=== PATIENT | male | born 1960 | race Caucasian/White ===

== ENCOUNTER → 2016-12-19 | Outpatient (CLI) | payer BC ==
--- NOTE | 2016-12-19 09:19 | CT ---
EXAMINATION TYPE: CT chest wo con DATE OF EXAM: 12/19/2016 7:50 AM COMPARISON: CT chest March 16, 2016. Older CT August 09, 2015. HISTORY: Prior abnormal CT. Known fibrosis. CT DLP: 770 mGycm. Automated Exposure Control for Dose Reduction was Utilized. TECHNIQUE: CT scan of the thorax is performed without IV contrast. FINDINGS: LUNGS: There is subpleural fibrosis and reticulation seen bilaterally and diffusely involving upper a nd lower lungs. Some honeycombing along the periphery is present. Overall I see no significant progre ssion from August 2015 exam. No suspicious groundglass opacity or consolidation is seen to suggest acute process. No pleural effusion or pneumothorax is noted bilaterally. No concerning parenchymal no dule or mass is identified. No significant bronchiectasis is present. MEDIASTINUM: Lack of IV contrast is noted to limit evaluation for mediastinal and especially hilar ad enopathy. There are no definitive greater than 1 cm hilar or mediastinal lymph nodes. No cardiomega ly or pericardial effusion is seen. Main pulmonary artery appears prominent at 3.7 cm on axial image 18 but stable from prior. Adjacent ascending aorta measures 3.[address] finding is consist ent with underlying pulmonary artery hypertension. OTHER: Liver is diffusely low dense consistent with fatty infiltration. Mild to moderate multilevel a nterior and lateral spurring is present. There is vacuum disc phenomenon in the lower thoracic levels noted. IMPRESSION: Bilateral interstitial fibrosis redemonstrated involving upper and lower lungs raises con cern for IPF. No significant progression from August 2015. No acute pulmonary process identified.
== END | disposition home or self-care (01) ==
LOC: RADCTMAIN 07:34
PROVIDERS: ATTEND Thoracic Surgery (Cardiothoracic Vascular Surgery)
DX: J84.10 Pulmonary fibrosis, unspecified (principal)
CPT/HCPCS: 71250

== ENCOUNTER → 2017-12-16 | Outpatient (CLI) | payer BC ==
--- NOTE | 2017-12-16 11:07 | CT ---
EXAMINATION TYPE: CT chest wo con DATE OF EXAM: 12/16/2017 COMPARISON: Prior CT chest 12/19/2016 HISTORY: Interstitial pulmonary disease CT DLP: 684.6 mGycm. Automated Exposure Control for Dose Reduction was Utilized. TECHNIQUE: CT scan of the thorax is performed without IV contrast. FINDINGS: Lack of contrast could compromise sensitivity. The pulmonary artery is dilated similar to prior exam. LUNGS: The lungs are similar in appearance, thickening of interlobular septa again noted bilaterally, some minimal honeycombing suspected at the lung bases, thickened septal lines are present, there is no concerning parenchymal mass or nodule identified. Findings are largely peripheral, subpleural and bilateral. Distribution is somewhat patchy, some areas of groundglass opacity also present. There is no pleural effusion or pneumothorax seen. The tracheobronchial tree is patent. MEDIASTINUM: Lack of IV contrast is noted to limit evaluation for mediastinal and especially hilar ad enopathy. Retrocaval pretracheal lymph node shows a short axis measurement of 12 to 13 mm similar to prior exam. OTHER: No additional significant interval change is seen. IMPRESSION: Findings compatible with idiopathic pulmonary fibrosis, similar to prior exam. Correlate for pulmonary artery hypertension.
== END | disposition home or self-care (01) ==
LOC: RADCTMAIN 08:15
PROVIDERS: ATTEND Thoracic Surgery (Cardiothoracic Vascular Surgery)
DX: J84.9 Interstitial pulmonary disease, unspecified (principal)
CPT/HCPCS: 71250

== ENCOUNTER → 2018-09-12 | Outpatient (CLI) | payer BC ==
[2018-09-12 18:44] LABS: Rheumatoid Factor 8 IU/mL (0-15)
[2018-09-12 18:57] LABS: Anti-DNA, DS unit <1.0 IU/mL; DNA Double-Stranded NEGATIVE (NEGATIVE); RNP <0.2 AI
[2018-09-12 19:12] LABS: Dermato. farinae IgE 0.55 kU/L
[2018-09-12 19:13] LABS: Cat Epith & Dander IgE <0.10 kU/L; Cockroach IgE 1.42 kU/L; Dog Dander IgE <0.10 kU/L
[2018-09-12 19:14] LABS: Alternaria alternata IgE <0.10 kU/L; Maple (Box Elder) IgE <0.10 kU/L
[2018-09-12 19:16] LABS: Birch IgE <0.10 kU/L; Elm IgE <0.10 kU/L; Oak IgE <0.10 kU/L
[2018-09-12 19:17] LABS: Ragweed,Common IgE <0.10 kU/L; Red Top (Bentgrass) IgE <0.10 kU/L
== END | disposition home or self-care (01) ==
LOC: LABWHC1 13:30
PROVIDERS: ATTEND Internal Medicine Critical Care Medicine
DX: J84.9 Interstitial pulmonary disease, unspecified (principal)
CPT/HCPCS: 36415; 82785; 86003; 86038; 86225; 86235; 86431

== ENCOUNTER → 2019-10-09 | Outpatient (CLI) | payer BC ==
--- NOTE | 2019-10-09 10:12 | FL ---
EXAMINATION TYPE: FL barium swallow DATE OF EXAM: 10/09/2019 CLINICAL HISTORY: Gastroesophageal reflux and prior ventral hernia repair TECHNIQUE: A double contrast esophagram is performed utilizing air and barium. A total of 1 minute and 21 seconds of fluoroscopic time was utilized during procedure. 51 fluoroscopic images were saved during the examination. COMPARISON: None FINDINGS: The esophagus shows abnormal motility with tertiary contractions sporadically throughout th e exam. There is normal emptying into the stomach. No evidence of hiatal hernia or stricture noted. The esophageal lining demonstrates horizontally oriented linear lucencies and peripheral irregularity . Mild degree gastroesophageal reflux was seen during real time performance of this study. Severe int raesophageal reflux was seen during the examination that may be on the basis of decreased propulsion/ presbyesophagus. IMPRESSION: 1. Abnormal esophageal mucosal lining. Findings can be seen in chronic esophagitis however given that mucosal irregularity endoscopy is recommended for further evaluation. 2. Mild degree gastroesophageal reflux and severe intraesophageal reflux, that may be on the basis of decreased propulsion and presbyesophagus.
== END | disposition home or self-care (01) ==
LOC: RADUSWWP 08:54
PROVIDERS: ATTEND Family Medicine
DX: K21.9 Gastro-esophageal reflux disease without esophagitis (principal); K20.9 Esophagitis, unspecified; K22.8 Other specified diseases of esophagus
CPT/HCPCS: 74220

== ENCOUNTER 2019-10-22 09:01 | Day surgery (SDC) | payer BC ==
[2019-10-20 11:18] VITALS: BMI 31.4
[~2019-10-22 09:01] MED LIST: LACTATED RINGERS 1,000 ML IV SCH; LIDOCAINE 1% 20 ML VIAL (10MG/ML) FOR IV START INTRADERMA PRN; MIDAZOLAM 2 MG/2 ML VIAL IV PRN
[2019-10-22 09:45] VITALS: RESP 16; TEMP 98.6
[2019-10-22] MEDS ORDERED: fentaNYL (PF) 50 MCG/ML 2 ML AMP ONE (10:09)
[2019-10-22] MEDS ORDERED: PROPOFOL 10 MG/ML 20 ML VIAL IV ONE (10:09)
[2019-10-22] MEDS ORDERED: LIDOCAINE 1% INJ 10MG/ML (20 ML MDV) ONE (10:09)
[2019-10-22] MEDS ORDERED: MIDAZOLAM 2 MG/2 ML VIAL ONE (10:09)
[2019-10-22 10:20] LABS: Albumin 4.8 g/dL (3.5-5.0); Bilirubin, Delta 0.4 mg/dL (0.0-0.2); Bilirubin,Unconjugated 0.6 mg/dL (0.0-1.1); Total Protein 8.3 g/dL (6.3-8.2)
--- NOTE | 2019-10-22 10:34 | P.PCN ---
Date of Procedure: 10/22/19 Description of Procedure: BRIEF HISTORY: Patient is a pleasant 59-year-old male who presents for outpatient esophagogastroduodenoscopy for evaluation of wall thickening of the esophagus seen on imaging and GERD. Patient reports a history of GERD controlled with omeprazole daily. However, he states that after starting his new medication for pulmonary fibrosis reflux has worsened. He reports that this is a known side effect of the medication. Omeprazole was increased to twice daily and he reports his symptoms are now improved. PROCEDURE PERFORMED: Esophagogastroduodenoscopy with biopsy. PREOPERATIVE DIAGNOSIS: GERD, wall thickening of the esophagus, abnormal imaging esophagus. ESTIMATED BLOOD LOSS: Minimal. IV sedation per anesthesia. PROCEDURE: After informed consent was obtained, the patient was brought into the endoscopy unit. IV sedation was administered by Anesthesia under continuous monitoring. Initially the Olympus GIF-190 video endoscope was inserted into the mouth. Esophagus intubated without any difficulty. It was gradually advanced into the stomach and duodenum and carefully examined. The bulb and the second part of the duodenum appeared normal, with biopsies taken to rule out celiac sprue. The scope at this time was withdrawn to the stomach, adequately insufflated with air, and upon careful examination, mucosa of the antrum, body, cardia and the fundus appeared normal, except for some mild punctate erythema in the antrum and body of the stomach suggestive of mild gastritis with biopsies taken. The scope was then withdrawn into the esophagus. The GE junction was located at 38 cm from the incisors with biopsies of the GE junction taken. The esophagus appeared normal, with biopsies of the midesophagus taken in the setting of abnormal imaging of the esophagus. There were no erosions or ulcerations seen and the patient tolerated the procedure well. IMPRESSION: 1. Gastritis antrum and body, biopsied. 2. Biopsies of the duodenum, GE junction and mid esophagus. RECOMMENDATIONS: The findings of this examination were discussed with the patient and his . Okay to resume diet. Okay to resume medications. Await pathology from biopsies. Continue omeprazole twice daily.
[2019-10-22 10:50] VITALS: BP 107/72; PULSE 69
== END 2019-10-22 11:12 | disposition home or self-care (01) ==
LOC: ORWHC2ENDO 09:01
PROVIDERS: ATTEND Internal Medicine
DX: K21.0 Gastro-esophageal reflux disease with esophagitis (principal); K29.50 Unspecified chronic gastritis without bleeding; J84.10 Pulmonary fibrosis, unspecified; I10 Essential (primary) hypertension; E78.5 Hyperlipidemia, unspecified; Z87.891 Personal history of nicotine dependence; Z79.899 Other long term (current) drug therapy; Z79.51 Long term (current) use of inhaled steroids; Z79.82 Long term (current) use of aspirin; Z98.890 Other specified postprocedural states; Z76.82 Awaiting organ transplant status
CPT/HCPCS: 88305; 80076; 43239; J2250; J2001; J3010; J2704

== ENCOUNTER → 2020-02-10 | Outpatient (CLI) | payer BC ==
[2020-02-10 17:24] LABS: Albumin 4.4 g/dL (3.80-4.90); Albumin/Globulin Ratio 1.83 (1.60-3.17); Bilirubin, Conjugated 0.2 mg/dL (0.20-0.40); Bilirubin,Unconjugated 0.4 mg/dL; Globulin 2.4 g/dL (1.6-3.3); Total Bilirubin 0.6 mg/dL (0.2-1.2); Total Protein 6.8 g/dL (6.2-8.2)
== END | disposition home or self-care (01) ==
LOC: LABWHC1 08:48
PROVIDERS: ATTEND Internal Medicine
DX: J84.9 Interstitial pulmonary disease, unspecified (principal); J84.112 Idiopathic pulmonary fibrosis
CPT/HCPCS: 36415; 80076

== ENCOUNTER → 2020-03-10 | Outpatient (CLI) | payer BC | END | disposition home or self-care (01) | LOC: LABWHC1 08:14 | PROVIDERS: ATTEND Internal Medicine | DX: J84.112 Idiopathic pulmonary fibrosis (principal) ==

== ENCOUNTER → 2020-05-20 | Outpatient (CLI) | payer BC ==
[2020-05-20 08:33] LABS: HGB 14.6 gm/dL (13.0-17.5); MCH 30.3 pg (25.0-35.0); MCHC 32.6 g/dL (31.0-37.0); Mean Platelet Volume 7.4; Platelet Count 236 k/uL (150-450); RBC 4.84 m/uL (4.30-5.90); RDW 13.4 % (11.5-15.5); WBC 6.8 k/uL (3.8-10.6)
[2020-05-20 08:37] LABS: Prothrombin Time 10.6 sec (9.0-12.0)
[2020-05-20 08:44] LABS: African American GFR (CKD) >90 (>60 ml/min/1.73 sqM); Anion Gap 9 mmol/L; Blood Urea Nitrogen 20 mg/dL (9-20); Calcium 9.6 mg/dL (8.4-10.2); Carbon Dioxide 27 mmol/L (22-30); Chloride 105 mmol/L (98-107); Glucose 91 mg/dL (74-99); Non-African American GFR(CKD) 80 (>60 ml/min/1.73 sqM); Potassium 4.4 mmol/L (3.5-5.1); Sodium 141 mmol/L (137-145)
== END | disposition home or self-care (01) ==
LOC: LABWHC1 07:56
PROVIDERS: ATTEND Internal Medicine
DX: Z01.818 Encounter for other preprocedural examination (principal); I25.10 Atherosclerotic heart disease of native coronary artery without angina pectoris
CPT/HCPCS: 36415; 80048; 85027; 85610

== ENCOUNTER 2020-06-10 09:02 | Day surgery (SDC) | payer BC ==
[2020-06-08 11:39] VITALS: BMI 29.1
[~2020-06-10 09:02] MED LIST changes: +LIDOCAINE 1% (10MG/ML) FOR IV START INTRADERMA PRN; -LIDOCAINE 1% 20 ML VIAL (10MG/ML) FOR IV START INTRADERMA PRN; -MIDAZOLAM 2 MG/2 ML VIAL IV PRN
[2020-06-10 09:48] VITALS: TEMP 97
[2020-06-10] MEDS ORDERED: PROPOFOL 10 MG/ML 20 ML VIAL IV ONE (10:33)
--- NOTE | 2020-06-10 10:53 | P.PCN ---
Date of Procedure: 06/10/20 Procedure(s) Performed: BRIEF HISTORY: Patient is a 59-year-old pleasant white male scheduled for an elective colonoscopy as a part of screening for colorectal neoplasia PROCEDURE PERFORMED: Colonoscopy. PREOPERATIVE DIAGNOSIS: Screening for colon cancer. IV sedation per Anesthesia. PROCEDURE: After informed consent was obtained, the patient, was brought into the endoscopy unit. IV sedation was administered by Anesthesia under continuous monitoring. Digital rectal examination was normal. Initially the Olympus CF-160 flexible video colonoscope was then inserted in the rectum, gradually advanced into the cecum without any difficulty. Careful examination was performed as the scope was gradually being withdrawn. Ileocecal valve and the appendiceal orifice were visualized and appeared normal. Prep was fair.. Mucosa of the cecum, ascending colon, transverse colon, descending colon, sigmoid colon, and rectum appeared normal. Retroflexion was performed in the rectum and no lesions were seen. The patient tolerated the procedure well. IMPRESSION: Normal-appearing colon from rectum to cecum with no evidence of colorectal neoplasia . RECOMMENDATIONS: Findings of this examination were discussed with the patient as well as his family. he was advised to have a repeat screening colonoscopy in 10 years.
[2020-06-10 11:09] VITALS: PULSE 80; RESP 18
[2020-06-10 11:13] VITALS: BP 115/69
== END 2020-06-10 11:40 | disposition home or self-care (01) ==
LOC: ORWHC2ENDO 09:02
PROVIDERS: ATTEND Internal Medicine Gastroenterology
DX: Z12.11 Encounter for screening for malignant neoplasm of colon (principal); J84.112 Idiopathic pulmonary fibrosis; K21.9 Gastro-esophageal reflux disease without esophagitis; Z79.899 Other long term (current) drug therapy; Z98.890 Other specified postprocedural states; Z79.51 Long term (current) use of inhaled steroids; Z87.19 Personal history of other diseases of the digestive system
CPT/HCPCS: G0121; J2704; 45378

== ENCOUNTER 2020-08-29 12:24 | Inpatient (IN) | payer BC ==
--- NOTE | 2020-08-29 13:51 | ED ---
General Adult HPI - General Chief complaint: Recheck/Abnormal Lab/Rx Stated complaint: abn labs Time Seen by Provider: 08/29/20 13:39 Source: patient Mode of arrival: ambulatory Limitations: no limitations - History of Present Illness Initial comments: Dictation was produced using bCODE dictation software. please excuse any grammatical, word or spelling errors. This patient was cared for during a federal and state declared state of emergency secondary to Covid 19 Chief Complaint: 60-year-old male with abnormal outpatient lab History of Present Illness: Is a 60-year-old male he is 2 weeks postop from bilateral lung transplant performed at [facility]. Patient states he had the procedure done 2 weeks ago. Patient has history of idiopathic pulmonary fibrosis. Patient states that his postoperative course was benign. He has been at home recovering. He has home health care nurse that checks on him regularly. He had some labs drawn on potassium of 6.2. Patient states he's been recovering well. He does have some mild pain in his chest and back from the surgery. Otherwise she feels well. Denies any paresthesias or weakness. The ROS documented in this emergency department record has been reviewed and co nfirmed by me. Those systems with pertinent positive or negative responses have been documented in the HPI. All other systems are other negative and/or noncontributory. PHYSICAL EXAM: General Impression: Alert and oriented x3, not in acute distress HEENT: Normocephalic atraumatic, extra-ocular movements intact, pupils equal and reactive to light bilaterally, mucous membranes moist. Cardiovascular: Heart regular rate and rhythm Chest: Able to complete full sentences, no retractions, no tachypnea, surgical sites clean dry and intact Abdomen: abdomen soft, non-tender, non-distended, no organomegaly Musculoskeletal: Pulses present and equal in all extremities, no peripheral edema Motor: no focal deficits noted Neurological: CN II-XII grossly intact, no focal motor or sensory deficits noted Skin: Intact with no visualized rashes Psych: Normal affect and mood ED course: 60-year-old male presents with potassium of 6.2 drawn on blood tests from earlier today. He is 2 weeks postop from bilateral lung transplant. Vital signs upon arrival are within acceptable limits. Patient is well-appearing at bedside. EKG does not show any changes to suggest hyperkalemia. EKG interpretation: Ventricular rate 89, normal sinus rhythm,. Interval 160, QRS 92, QTC 425. No ID prolongation, no QTC prolongation, no ST or T-wave changes noted. Overall, this EKG is unremarkable Repeat labs were obtained. Hemoglobin 10.0. This is probably cyst baseline from surgery. Sodium is 129. Patient given intravenous fluids. Discussed him 6.6 which is consistent with that of a potassium from earlier. He is touch of acute kidney. Creatinine of 2.07. Urinalysis unremarkable. Discussed patient case with Dr. 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 He is agreeable with patient being admitted to our hospital for potassium control. Case is discussed with Dr. Guaman who requested nephrology consultation. Patient given hyperkalemia cocktail. - Related Data Home Medications Medication Instructions Recorded Confirmed Ascorbic Acid [Vitamin C 250 mg 500 mg PO DAILY 10/20/19 06/10/20 Tablet Chew] Aspirin 81 mg PO DAILY 10/20/19 06/10/20 Atorvastatin [Lipitor] 20 mg PO HS 10/20/19 06/10/20 Cholecalciferol [Vitamin D3] 400 unit PO DAILY 10/20/19 06/10/20 Cyanocobalamin (Vitamin B-12) 2,000 mcg PO DAILY 10/20/19 06/10/20 [Vitamin B-12] Fish Oil/Dha/Epa [Fish Oil 1,200 1 each PO DAILY 10/20/19 06/10/20 mg Fish Oil] Fluticasone/Umeclidin/Vilanter 1 inhalation INHALATION QAM 10/20/19 06/10/20 [Trelegy Ellipta 100-62.5-25] Gabapentin [Neurontin] 600 mg PO HS 10/20/19 06/10/20 Losartan Potassium [Cozaar] 100 mg PO HS 10/20/19 06/10/20 Magnesium 500 mg PO DAILY 10/20/19 06/10/20 Multivit-Min/FA/Lycopen/Lutein 1 each PO DAILY 10/20/19 06/10/20 [Centrum Silver Men Tablet] Omeprazole 20 mg PO BID 10/20/19 06/10/20 Pirfenidone [Esbriet] 801 mg PO 0730,1400,2000 10/20/19 06/10/20 Allergies Allergy/AdvReac Type Severity Reaction Status Date / Time No Known Allergies Allergy Verified 08/29/20 12:56 Review of Systems ROS Statement: Those systems with pertinent positive or pertinent negative responses have been documented in the HPI. ROS Other: All systems not noted in ROS Statement are negative. Past Medical History Past Medical History: GERD/Reflux, Hyperlipidemia, Hypertension Additional Past Medical History / Comment(s): pt states "severe reflux and possible ulcerations shown on recent barium swallow",pulmonary fibrosis-possible transplant canidate-following with Dr at [facility]-uses O2 at 2L NC at hs and prn.Hx of jaw locking open on rt side spontaneously with need for anesthesia to close mult times. History of Any Multi-Drug Resistant Organisms: None Reported Past Surgical History: Hernia Repair, Orthopedic Surgery Additional Past Surgical History / Comment(s): lazy eye surgery,arthroscopy to knee,umbilical hernia repair w/ mesh, tamara lung transplant Past Anesthesia/Blood Transfusion Reactions: No Reported Reaction Past Psychological History: No Psychological Hx Reported Smoking Status: Former smoker Past Alcohol Use History: None Reported Past Drug Use History: None Reported - Past Family History Mother Family Medical History: No Reported History General Exam Limitations: no limitations Course Vital Signs 08/29/20 12:56 Temperature 98.4 F Pulse Rate 98 Respiratory 18 Rate Blood Pressure 149/94 O2 Sat by Pulse 98 Oximetry Medical Decision Making - Lab Data Result diagrams: 08/29/20 13:47 08/29/20 13:47 Lab Results 08/29/20 08/29/20 08/29/20 Range/Units 13:47 13:47 13:47 WBC 11.2 H (3.8-10.6) k/uL RBC 3.13 L (4.30-5.90) m/uL Hgb 10.0 L (13.0-17.5) gm/dL Hct 29.7 L (39.0-53.0) % MCV 95.1 (80.0-100.0) fL MCH 32.0 (25.0-35.0) pg MCHC 33.7 (31.0-37.0) g/dL RDW 14.2 (11.5-15.5) % Plt Count 372 (150-450) k/uL MPV 6.3 Neutrophils % 94 % Lymphocytes % 3 % Monocytes % 1 % Eosinophils % 1 % Basophils % 0 % Neutrophils # 10.6 H (1.3-7.7) k/uL Lymphocytes # 0.4 L (1.0-4.8) k/uL Monocytes # 0.2 (0-1.0) k/uL Eosinophils # 0.1 (0-0.7) k/uL Basophils # 0.0 (0-0.2) k/uL Sodium 129 L (137-145) mmol/L Potassium 6.6 H* (3.5-5.1) mmol/L Chloride 95 L (98-107) mmol/L Carbon Dioxide 24 (22-30) mmol/L Anion Gap 10 mmol/L BUN 43 H (9-20) mg/dL Creatinine 2.07 H (0.66-1.25) mg/dL Est GFR (CKD-EPI)AfAm 39 (>60 ml/min/1.73 sqM) Est GFR (CKD-EPI)NonAf 34 (>60 ml/min/1.73 sqM) Glucose 142 H (74-99) mg/dL Calcium 9.4 (8.4-10.2) mg/dL Magnesium 2.2 (1.6-2.3) mg/dL Urine Color Yellow Urine Appearance Clear (Clear) Urine pH 5.0 (5.0-8.0) Ur Specific [place] 1.015 (1.001-1.035) Urine Protein Trace H (Negative) Urine Glucose (UA) Negative (Negative) Urine Ketones Negative (Negative) Urine Blood Negative (Negative) Urine Nitrite Negative (Negative) Urine Bilirubin Negative (Negative) Urine Urobilinogen <2.0 (<2.0) mg/dL Ur Leukocyte Esterase Negative (Negative) Disposition Clinical Impression: Hyperkalemia Disposition: ADMITTED IP TO THIS HOSP Condition: Fair Referrals: Jose Bear DO [Primary Care Provider] - 1-2 days Decision Time: 14:50
[2020-08-29 14:08] LABS: Basophils % (A) 0 %; Eosinophils # (A) 0.1 k/uL (0-0.7); Eosinophils % (A) 1 %; HCT 29.7 % (39.0-53.0); Lymphocytes # (A) 0.4 k/uL (1.0-4.8); Lymphocytes % (A) 3 %; MCHC 33.7 g/dL (31.0-37.0); MCV 95.1 fL (80.0-100.0); Mean Platelet Volume 6.3; Monocytes # (A) 0.2 k/uL (0-1.0); Monocytes % (A) 1 %; Neutrophils # (A) 10.6 k/uL (1.3-7.7); Neutrophils % (A) 94 %; Platelet Count 372 k/uL (150-450); RBC 3.13 m/uL (4.30-5.90); RDW 14.2 % (11.5-15.5); WBC 11.2 k/uL (3.8-10.6)
[2020-08-29 14:15] LABS: Calcium 9.4 mg/dL (8.4-10.2); Magnesium 2.2 mg/dL (1.6-2.3)
[2020-08-29 14:19] LABS: Potassium 6.6 mmol/L (3.5-5.1)
[2020-08-29] MEDS ORDERED: ALBUTEROL NEB (CONC) 2.5 MG/0.5 ML INHALATION ONE (14:21)
[2020-08-29] MEDS ORDERED: SODIUM BICARB 8.4% 50 ML SYR (1 MEQ/ML) IV ONE (14:21)
[2020-08-29] MEDS ORDERED: DEXTROSE 50% SYRINGE 50 ML IVP ONE (14:21)
[2020-08-29] MEDS ORDERED: SODIUM CHLORIDE 0.9% 1,000 ML IV STA (14:21)
[2020-08-29] MEDS ORDERED: INSULIN REGULAR 100 UNIT/ML VIAL (IV) IV ONE ×3 (14:21→23:45)
[2020-08-29 14:32] LABS: Appearance,Urine Clear (Clear); Bilirubin,Urine Negative (Negative); Blood,Urine Negative (Negative); Color,Urine Yellow; Glucose,Urine (UA) Negative (Negative); Ketones,Urine Negative (Negative); Leukocyte Esterase,Urine Negative (Negative); Nitrite,Urine Negative (Negative); Protein,Urine Trace (Negative); Specific Gravity,Urine 1.015 (1.001-1.035); Urobilinogen,Urine <2.0 mg/dL (<2.0)
[2020-08-29] MEDS ORDERED: NALOXONE 0.4 MG/ML 1 ML VIAL IV PRN (14:45)
[2020-08-29] MEDS: SODIUM POLYSTYRENE SULFONATE 15 GM/60 ML BOTTLE PO SCH ×2 (15:14→21:26)
[2020-08-29] MEDS: SODIUM CHLORIDE 0.9% 1,000 ML IV SCH (15:16)
[2020-08-29] MEDS ORDERED: SODIUM BICARB 8.4% 50 ML SYR (1 MEQ/ML) IV STA ×2 (19:54→23:25)
[2020-08-29] MEDS ORDERED: DEXTROSE 50% SYRINGE 50 ML IVP STA ×2 (19:57→23:25)
[2020-08-29] MEDS ORDERED: CALCIUM GLUCONATE 1 GM in SODIUM CHLORIDE 0.9% 100 ML IVPB ONE (20:15)
[2020-08-29] MEDS: TACROLIMUS 1 MG CAP PO SCH (20:35)
[2020-08-29] MEDS: ATORVASTATIN 20 MG TAB PO SCH (20:35)
[2020-08-29] MEDS: ACETAMINOPHEN TAB 500 MG TAB PO SCH (20:36)
[2020-08-29] MEDS: SENNOSIDES 8.6 MG TAB PO SCH (20:37)
[2020-08-29] MEDS: traZODone HCL 50 MG TAB PO SCH (20:37)
[2020-08-29] MEDS: GABAPENTIN 300 MG CAP PO SCH (20:37)
[2020-08-29] MEDS: azaTHIOprine 50 MG TAB PO SCH (20:37)
[2020-08-29] MEDS: DOCUSATE 100 MG CAP PO SCH (20:37)
[2020-08-29] MEDS: NYSTATIN 100,000 UNIT/ML SUSP 500,000 UNIT/5 ML CUP PO SCH (20:38)
[2020-08-30] MEDS: SODIUM CHLORIDE 0.9% 1,000 ML IV SCH ×2 (01:54→13:38)
[2020-08-30] MEDS: ACETAMINOPHEN TAB 500 MG TAB PO SCH ×3 (03:58→19:59)
[2020-08-30] MEDS: CALCIUM CARBONATE 500 MG CHEWABLE PO SCH ×3 (04:43→18:04)
[2020-08-30 07:23] LABS: African American GFR (CKD) 37 (>60 ml/min/1.73 sqM); Anion Gap 6 mmol/L; Blood Urea Nitrogen 36 mg/dL (9-20); Carbon Dioxide 30 mmol/L (22-30); Chloride 98 mmol/L (98-107); Glucose 88 mg/dL (74-99); Magnesium 1.9 mg/dL (1.6-2.3); Non-African American GFR(CKD) 32 (>60 ml/min/1.73 sqM); Potassium 5.3 mmol/L (3.5-5.1); Sodium 134 mmol/L (137-145)
[2020-08-30] MEDS: CHOLECALCIFEROL 1,000 UNIT TAB PO SCH (09:06)
[2020-08-30] MEDS: GABAPENTIN 300 MG CAP PO SCH ×2 (09:06→19:59)
[2020-08-30] MEDS: ASPIRIN 81 MG PO SCH (09:06)
[2020-08-30] MEDS: PANTOPRAZOLE 40 MG TABLET PO SCH (09:07)
[2020-08-30] MEDS: TACROLIMUS 1 MG CAP PO SCH ×2 (09:07→20:00)
[2020-08-30] MEDS: DOCUSATE 100 MG CAP PO SCH ×2 (09:07→19:59)
[2020-08-30] MEDS: predniSONE 20 MG TAB PO SCH (09:07)
[2020-08-30] MEDS: MAGNESIUM OXIDE 400 MG TAB PO SCH ×2 (09:07→18:04)
[2020-08-30] MEDS: MULTIVITAMINS, THERA 1 EACH TAB PO SCH (09:07)
[2020-08-30] MEDS: NYSTATIN 100,000 UNIT/ML SUSP 500,000 UNIT/5 ML CUP PO SCH ×4 (09:08→19:58)
--- NOTE | 2020-08-30 10:38 | P.NPCON ---
History of Present Illness - Reason for Consult chronic renal failure - History of Present Illness Reason for consultation: Chronic kidney disease and hyperkalemia History of present illness: Patient is a 60-year-old male seen in renal consultation for chronic kidney disease. Patient has chronic kidney disease stage IIIB. Baseline creatinine in the range of 2-2.3. Patient presented to the hospital due to abnormal labs. Patient states he received bilateral lung transplant on 08/11/2020 at [facility]. He was getting blood work done outpatient and was advised to come to the hospital due to high potassium. Patient's potassium level was 6.6 on admission which has been medically treated. It was 5.3 as of this morning. Good urine output. No hematuria or dysuria. No vomiting or diarrhea. Patient is maintained on Prograf, azathioprine and prednisone for antirejection medications. He was also on Bactrim for infection prophylaxis. He denies chest pain or shortness of breath. No edema. Denies use of nonsteroidals. No history of diabetes. Vital signs are stable. General: The patient appeared well nourished and normally developed. HEENT: Head exam is unremarkable. Neck is without jugular venous distension. LUNGS: Breath sounds decreased. HEART: Rate and Rhythm are regular. ABDOMEN: Soft, nontender. EXTREMITITES: No edema. 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 History of Any Multi-Drug Resistant Organisms: None Reported Past Surgical History: Heart Catheterization, Hernia Repair, Orthopedic Surgery Additional Past Surgical History / Comment(s): lazy eye surgery,arthroscopy to knee,umbilical hernia repair w/ mesh, tamara lung transplant, colonoscopy Past Anesthesia/Blood Transfusion Reactions: No Reported Reaction Past Psychological History: No Psychological Hx Reported Smoking Status: Former smoker Past Alcohol Use History: None Reported Additional Past Alcohol Use History / Comment(s): quit smoking 35 yrs ago,smoked short period Past Drug Use History: None Reported - Past Family History Mother Family Medical History: No Reported History Medications and Allergies Home Medications Medication Instructions Recorded Confirmed Type Aspirin 81 mg PO DAILY 10/20/19 08/29/20 History Atorvastatin [Lipitor] 20 mg PO HS 10/20/19 08/29/20 History Gabapentin [Neurontin] 300 mg PO BID 10/20/19 08/29/20 History Multivit-Min/FA/Lycopen/Lutein 1 tab PO DAILY 10/20/19 08/29/20 History [Centrum Silver Men Tablet] Omeprazole 20 mg PO DAILY@0700 10/20/19 08/29/20 History Acetaminophen Tab [Tylenol Tab] 1,000 mg PO Q8H 08/29/20 08/29/20 History Calcium Carbonate 500 mg PO AC-TID 08/29/20 08/29/20 History Cholecalciferol (Vitamin D3) 125 mcg PO DAILY@0900 08/29/20 08/29/20 History [Vitamin D3] Cytogam Ivig 1 dose IVPB DIRECTED 08/29/20 08/29/20 History Docusate [Colace] 100 mg PO BID 08/29/20 08/29/20 History Magnesium Oxide [Mag-Ox] 800 mg PO AC-BID 08/29/20 08/29/20 History Nystatin 500,000 unit PO QID 08/29/20 08/29/20 History Sennosides [Senna] 8.6 - 17.2 mg PO HS 08/29/20 08/29/20 History Sulfamethox-Tmp 400-80Mg [Bactrim 1 tab PO MOWEFR@0900 08/29/20 08/29/20 History SS 400-80 mg] Tacrolimus [Prograf] 3 mg PO Q12H 08/29/20 08/29/20 History azaTHIOprine [Imuran] 200 mg PO HS 08/29/20 08/29/20 History oxyCODONE HCL [OxyIR] 5 - 10 mg PO Q4-6H PRN 08/29/20 08/29/20 History predniSONE [Deltasone] 20 mg PO DAILY 08/29/20 08/29/20 History traZODone HCL 50 mg PO HS 08/29/20 08/29/20 History valGANciclovir [Valcyte] 900 mg PO DAILY 08/29/20 08/29/20 History Allergies Allergy/AdvReac Type Severity Reaction Status Date / Time No Known Allergies Allergy Verified 08/29/20 15:26 Physical Exam Vitals: Vital Signs Temp Pulse Pulse Resp BP BP BP 08/30/20 07:41 97.7 F 92 18 154/88 08/30/20 04:48 98.0 F 90 16 160/85 08/29/20 21:00 97.3 F L 91 20 158/94 08/29/20 16:14 97.2 F L 108 H 16 132/80 08/29/20 15:57 90 08/29/20 15:36 90 08/29/20 15:22 90 18 153/95 08/29/20 12:56 98.4 F 98 18 149/94 Pulse Ox 08/30/20 07:41 96 08/30/20 04:48 98 08/29/20 21:00 99 08/29/20 16:14 96 08/29/20 15:57 08/29/20 15:36 08/29/20 15:22 98 08/29/20 12:56 98 Intake and Output 08/29/20 08/30/20 08/30/20 22:59 06:59 14:59 Intake Total 720 Output Total 825 1000 Balance -825 -280 Intake: Intake, IV Titration 720 Amount Sodium Chloride 0.9% 1, 720 000 ml @ 90 mls/hr IV . Q11H7M [facility] Rx#:[id number] Output: Urine 825 1000 Other: Voiding Method Urinal Weight 88.451 kg Results - Lab Results Most recent lab results Calcium 9.0 mg/dL (8.4-10.2) 08/30/20 07:00 Magnesium 1.9 mg/dL (1.6-2.3) 08/30/20 07:00 08/29/20 13:47 08/30/20 07:00 Assessment and Plan Plan: Assessment: 1. Chronic kidney disease stage IIIB secondary to nephrosclerosis with baseline creatinine in the range of 2-2.3. UA fairly benign. No evidence of retention. 2. Hyperkalemia secondary to chronic kidney disease, Prograf and Bactrim. Improved with medical management. 3. Status post lung transplant on 08/11/2020 due to IPF. 4. Hypovolemic hyponatremia improved with IV hydration. Plan: Hep-Lock IV fluids. Case discussed with [facility] transplant team. Will hold Bactrim. Alternative to Bactrim would be dapsone. However need to rule out G6PD deficiency before starting dapsone. Repeat potassium level at noon. If stable, he can be discharged and follow up with [facility]. Check G6PD level. Check prograf level - target level 10-14 for 1st 6 months post-lung transplant per [facility]. Avoid nephrotoxins. Low potassium diet. Thank you for the consultation. I will continue to follow the patient with you during his hospital stay.
[2020-08-30] MEDS ORDERED: INSULIN REGULAR 100 UNIT/ML VIAL (IV) IV ONE ×2 (13:21→20:11)
[2020-08-30] MEDS ORDERED: DEXTROSE 50% SYRINGE 50 ML IVP STA ×2 (13:22→20:11)
[2020-08-30] MEDS: DAPSONE 25 MG TAB PO SCH (13:26)
--- NOTE | 2020-08-30 14:17 | P.HPIM ---
History of Present Illness H&P Date: 08/30/20 Chief Complaint: Abnormal labs This is a 60-year-old male who underwent bilateral lung transplant 2 weeks ago. At [facility], she he has a history of IPF, postoperative course has been unremarkable, routine labs 2 weeks noted to have a hyper kalemia and acute renal injury patient has been admitted into the hospital with infectious disease as well as the renal on consult, patient in addition to home medicine has been on Prograf as well as Bactrim thought to be involved and acute kidney injury and hyperkalemia, on specific questioning he denies any chest pain shortness of breath denies any cough or sputum production, wounds thoracic have been healing well, denies any problem with passing urine hematuria, denies any flank pain Review of Systems All systems: negative Past Medical History Past Medical History: GERD/Reflux, Hyperlipidemia, Hypertension Additional Past Medical History / Comment(s): pt states "severe reflux and possible ulcerations shown on recent barium swallow",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 History of Any Multi-Drug Resistant Organisms: None Reported Past Surgical History: Heart Catheterization, Hernia Repair, Orthopedic Surgery Additional Past Surgical History / Comment(s): lazy eye surgery,arthroscopy to knee,umbilical hernia repair w/ mesh, tamara lung transplant, colonoscopy Past Anesthesia/Blood Transfusion Reactions: No Reported Reaction Past Psychological History: No Psychological Hx Reported Smoking Status: Former smoker Past Alcohol Use History: None Reported Additional Past Alcohol Use History / Comment(s): quit smoking 35 yrs ago,smoked short period Past Drug Use History: None Reported - Past Family History Mother Family Medical History: No Reported History Medications and Allergies Home Medications Medication Instructions Recorded Confirmed Type Aspirin 81 mg PO DAILY 10/20/19 08/29/20 History Atorvastatin [Lipitor] 20 mg PO HS 10/20/19 08/29/20 History Gabapentin [Neurontin] 300 mg PO BID 10/20/19 08/29/20 History Multivit-Min/FA/Lycopen/Lutein 1 tab PO DAILY 10/20/19 08/29/20 History [Centrum Silver Men Tablet] Omeprazole 20 mg PO DAILY@0700 10/20/19 08/29/20 History Acetaminophen Tab [Tylenol Tab] 1,000 mg PO Q8H 08/29/20 08/29/20 History Calcium Carbonate 500 mg PO AC-TID 08/29/20 08/29/20 History Cholecalciferol (Vitamin D3) 125 mcg PO DAILY@0900 08/29/20 08/29/20 History [Vitamin D3] Cytogam Ivig 1 dose IVPB DIRECTED 08/29/20 08/29/20 History Docusate [Colace] 100 mg PO BID 08/29/20 08/29/20 History Magnesium Oxide [Mag-Ox] 800 mg PO AC-BID 08/29/20 08/29/20 History Nystatin 500,000 unit PO QID 08/29/20 08/29/20 History Sennosides [Senna] 8.6 - 17.2 mg PO HS 08/29/20 08/29/20 History Sulfamethox-Tmp 400-80Mg [Bactrim 1 tab PO MOWEFR@0900 08/29/20 08/29/20 History SS 400-80 mg] Tacrolimus [Prograf] 3 mg PO Q12H 08/29/20 08/29/20 History azaTHIOprine [Imuran] 200 mg PO HS 08/29/20 08/29/20 History oxyCODONE HCL [OxyIR] 5 - 10 mg PO Q4-6H PRN 08/29/20 08/29/20 History predniSONE [Deltasone] 20 mg PO DAILY 08/29/20 08/29/20 History traZODone HCL 50 mg PO HS 08/29/20 08/29/20 History valGANciclovir [Valcyte] 900 mg PO DAILY 08/29/20 08/29/20 History Allergies Allergy/AdvReac Type Severity Reaction Status Date / Time No Known Allergies Allergy Verified 08/29/20 15:26 Physical Exam Vitals: Vital Signs Temp Pulse Pulse Resp BP BP BP 08/30/20 07:41 97.7 F 92 18 154/88 08/30/20 04:48 98.0 F 90 16 160/85 08/29/20 21:00 97.3 F L 91 20 158/94 08/29/20 16:14 97.2 F L 108 H 16 132/80 08/29/20 15:57 90 08/29/20 15:36 90 08/29/20 15:22 90 18 153/95 Pulse Ox 08/30/20 07:41 96 08/30/20 04:48 98 08/29/20 21:00 99 08/29/20 16:14 96 08/29/20 15:57 08/29/20 15:36 08/29/20 15:22 98 Intake and Output 08/29/20 08/30/20 08/30/20 22:59 06:59 14:59 Intake Total 720 Output Total 825 1000 Balance -825 -280 Intake: Intake, IV Titration 720 Amount Sodium Chloride 0.9% 1, 720 000 ml @ 90 mls/hr IV . Q11H7M [facility] Rx#:[id number] Output: Urine 825 1000 Other: Voiding Method Urinal Weight 88.451 kg - Constitutional General appearance: average body habitus - EENT Eyes: fundus normal Ears: bilateral: normal - Neck Neck: normal ROM Carotids: bilateral: upstroke normal Thyroid: bilateral: normal size - Respiratory Thoracic incision healing well Respiratory: bilateral: CTA - Cardiovascular Rhythm: regular Heart sounds: normal: S1, S2 - Gastrointestinal General gastrointestinal: normal bowel sounds, soft - Integumentary Integumentary: normal turgor - Neurologic Neurologic: CNII-XII intact - Musculoskeletal Musculoskeletal: gait normal, strength equal bilaterally - Psychiatric Psychiatric: A&O x's 3, appropriate affect, intact judgment & insight Results CBC & Chem 7: 08/29/20 13:47 08/30/20 11:47 Labs: Abnormal Lab Results - Last 24 Hours (Table) 08/29/20 08/29/20 08/29/20 Range/Units 13:47 13:47 16:00 Sodium 129 L (137-145) mmol/L Potassium 6.6 H* 6.4 H* (3.5-5.1) mmol/L Chloride 95 L (98-107) mmol/L BUN 43 H (9-20) mg/dL Creatinine 2.07 H (0.66-1.25) mg/dL Glucose 142 H (74-99) mg/dL Urine Protein Trace H (Negative) 08/29/20 08/29/20 08/30/20 Range/Units 18:56 22:48 07:00 Sodium 134 L (137-145) mmol/L Potassium 6.2 H* 5.5 H 5.3 H (3.5-5.1) mmol/L Chloride (98-107) mmol/L BUN 36 H (9-20) mg/dL Creatinine 2.16 H (0.66-1.25) mg/dL Glucose (74-99) mg/dL Urine Protein (Negative) 08/30/20 Range/Units 11:47 Sodium (137-145) mmol/L Potassium 5.5 H (3.5-5.1) mmol/L Chloride (98-107) mmol/L BUN (9-20) mg/dL Creatinine (0.66-1.25) mg/dL Glucose (74-99) mg/dL Urine Protein (Negative) Comments: EKG revealed sinus rhythm with mild LVH Thrombosis Risk Factor Assmnt - Choose All That Apply Any of the Below Risk Factors Present?: Yes Each Factor Represents 1 point: Age 41-60 years, Serious lung disease incl. pne umonia (< 1month) Each Risk Factor Represents 5 Points: Major surgery lasting over 3 hours Thrombosis Risk Factor Assessment Total Risk Factor Score: 7 Thrombosis Risk Factor Assessment Level: High Risk Assessment and Plan Assessment: Acute kidney injury on chronic kidney injury Hyperkalemia Status post bilateral lung transplant due to IPF Hypovolemic hyponatremia Plan: Plan includes to hold the Bactrim, gentle rehydration has been finished, repeat potassium levels are pending, anticipated discharge in next 24 hours options presented changing Bactrim to dapsone patient declined he would still like to hold it for now Time with Patient: Greater than 30
[2020-08-30] MEDS: azaTHIOprine 50 MG TAB PO SCH (19:59)
[2020-08-30] MEDS: SENNOSIDES 8.6 MG TAB PO SCH (20:00)
[2020-08-30] MEDS: ATORVASTATIN 20 MG TAB PO SCH (20:00)
[2020-08-30] MEDS ORDERED: SODIUM BICARB 8.4% 50 ML SYR (1 MEQ/ML) IV STA (20:11)
[2020-08-30] MEDS ORDERED: FUROSEMIDE 10 MG/ML 2 ML VIAL IV ONE (20:16)
[2020-08-30] MEDS: traZODone HCL 50 MG TAB PO SCH (22:02)
--- NOTE | 2020-08-30 22:42 | P.CONS ---
History of Present Illness - Reason for Consult Consult date: 08/30/20 pcp propylaxis Requesting physician: Beltran Guaman - Chief Complaint abnormal labs x 1 day - History of Present Illness Patient is a 68-year-old male in this patient who is a status post bilateral lung transplant completed at [facility] on 08/11/2020 patient said he was discharged home day 8 of his surgery patient is currently being maintained on Prograf and azathioprine prednisone and Bactrim DS 3 times a week for PCP prophylaxis, patient did have history of chronic kidney disease with a baseline creatinine of 2.3 patient did have outpatient blood work done and he was noticed to have potassium of 6.6 for the patient has been sent to the ER for further evaluation, patient currently denies having any fever or any chills, patient denies having any chest pain or shortness of breath or cough no nausea no vomiting no abdominal pain no diarrhea and no urinary symptoms, infectious disease was consulted as his Bactrim was discontinued and to recommend different prophylactic treatment for PCP prophylaxis. 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 History of Any Multi-Drug Resistant Organisms: None Reported Past Surgical History: Heart Catheterization, Hernia Repair, Orthopedic Surgery Additional Past Surgical History / Comment(s): lazy eye surgery,arthroscopy to knee,umbilical hernia repair w/ mesh, tamara lung transplant, colonoscopy Past Anesthesia/Blood Transfusion Reactions: No Reported Reaction Past Psychological History: No Psychological Hx Reported Smoking Status: Former smoker Past Alcohol Use History: None Reported Additional Past Alcohol Use History / Comment(s): quit smoking 35 yrs ago,smoked short period Past Drug Use History: None Reported - Past Family History Mother Family Medical History: No Reported History Medications and Allergies Home Medications Medication Instructions Recorded Confirmed Type Aspirin 81 mg PO DAILY 10/20/19 08/29/20 History Atorvastatin [Lipitor] 20 mg PO HS 10/20/19 08/29/20 History Gabapentin [Neurontin] 300 mg PO BID 10/20/19 08/29/20 History Multivit-Min/FA/Lycopen/Lutein 1 tab PO DAILY 10/20/19 08/29/20 History [Centrum Silver Men Tablet] Omeprazole 20 mg PO DAILY@0700 10/20/19 08/29/20 History Acetaminophen Tab [Tylenol Tab] 1,000 mg PO Q8H 08/29/20 08/29/20 History Calcium Carbonate 500 mg PO AC-TID 08/29/20 08/29/20 History Cholecalciferol (Vitamin D3) 125 mcg PO DAILY@0900 08/29/20 08/29/20 History [Vitamin D3] Cytogam Ivig 1 dose IVPB DIRECTED 08/29/20 08/29/20 History Docusate [Colace] 100 mg PO BID 08/29/20 08/29/20 History Magnesium Oxide [Mag-Ox] 800 mg PO AC-BID 08/29/20 08/29/20 History Nystatin 500,000 unit PO QID 08/29/20 08/29/20 History Sennosides [Senna] 8.6 - 17.2 mg PO HS 08/29/20 08/29/20 History Sulfamethox-Tmp 400-80Mg [Bactrim 1 tab PO MOWEFR@0900 08/29/20 08/29/20 History SS 400-80 mg] Tacrolimus [Prograf] 3 mg PO Q12H 08/29/20 08/29/20 History azaTHIOprine [Imuran] 200 mg PO HS 08/29/20 08/29/20 History oxyCODONE HCL [OxyIR] 5 - 10 mg PO Q4-6H PRN 08/29/20 08/29/20 History predniSONE [Deltasone] 20 mg PO DAILY 08/29/20 08/29/20 History traZODone HCL 50 mg PO HS 08/29/20 08/29/20 History valGANciclovir [Valcyte] 900 mg PO DAILY 08/29/20 08/29/20 History Allergies Allergy/AdvReac Type Severity Reaction Status Date / Time No Known Allergies Allergy Verified 08/29/20 15:26 Physical Exam Vitals: Vital Signs Temp Pulse Resp BP BP Pulse Ox 08/30/20 14:00 97.5 F L 94 18 119/85 100 08/30/20 07:41 97.7 F 92 18 154/88 96 08/30/20 04:48 98.0 F 90 16 160/85 98 08/29/20 21:00 97.3 F L 91 20 158/94 99 Intake and Output 08/30/20 08/30/20 08/30/20 06:59 14:59 22:59 Intake Total 720 Output Total 1000 Balance -280 Intake: Intake, IV Titration 720 Amount Sodium Chloride 0.9% 1, 720 000 ml @ 90 mls/hr IV . Q11H7M [facility] Rx#:[id number] Output: Urine 1000 GENERAL DESCRIPTION: Middle-aged male lying in bed, no distress. No tachypnea or accessory muscle of respiration use. HEENT: Shows Pallor , no scleral icterus. Oral mucous membrane is dry. NECK: Trachea central, no thyromegaly. LUNGS: Unlabored breathing. Clear to auscultation anteriorly. Surgical incision is healed HEART: S1, S2, regular rate and rhythm. ABDOMEN: Soft, no tenderness , guarding or rigidity EXTREMITIES: No edema of feet. SKIN: No rash, no masses palpable. NEUROLOGICAL: The patient is awake, alert, oriented x3, mood and affect normal. Results CBC & Chem 7: 08/29/20 13:47 08/30/20 18:45 Labs: Abnormal Lab Results - Last 24 Hours (Table) 08/29/20 08/29/20 08/30/20 Range/Units 18:56 22:48 07:00 Sodium 134 L (137-145) mmol/L Potassium 6.2 H* 5.5 H 5.3 H (3.5-5.1) mmol/L BUN 36 H (9-20) mg/dL Creatinine 2.16 H (0.66-1.25) mg/dL 08/30/20 Range/Units 11:47 Sodium (137-145) mmol/L Potassium 5.5 H (3.5-5.1) mmol/L BUN (9-20) mg/dL Creatinine (0.66-1.25) mg/dL Assessment and Plan Assessment: -patient is a 60-year-old male status post double lung transplant in this patient currently on antirejection medication also on Bactrim for PCP prophylaxis in this patient apparently did have a significant hyperkalemia attributed to Bactrim which has been discontinued, patient is currently afebrile and no obvious focus of infection at this point Plan: 1-Bactrim discontinued 2-we will check G6PD deficiency 3-start the patient on dapsone 100 mg daily, this has been discussed in detail with his transplant team at [facility] We will follow on clinical condition and cultures to further adjust medication if needed Thank you for this consultation we will follow the patient along with you Time with Patient: Greater than 30
[2020-08-31] MEDS: SODIUM CHLORIDE 0.9% 1,000 ML IV SCH ×2 (01:46→11:14)
[2020-08-31 02:11] VITALS: RESP 17
[2020-08-31] MEDS: ACETAMINOPHEN TAB 500 MG TAB PO SCH ×2 (02:24→11:13)
[2020-08-31] MEDS: CALCIUM CARBONATE 500 MG CHEWABLE PO SCH ×2 (03:35→11:14)
[2020-08-31] MEDS: PANTOPRAZOLE 40 MG TABLET PO SCH (07:36)
[2020-08-31] MEDS: MAGNESIUM OXIDE 400 MG TAB PO SCH (07:36)
[2020-08-31] MEDS: TACROLIMUS 1 MG CAP PO SCH (07:36)
[2020-08-31 07:44] VITALS: PULSE 94
[2020-08-31] MEDS: ASPIRIN 81 MG PO SCH (08:49)
[2020-08-31] MEDS: predniSONE 20 MG TAB PO SCH (08:49)
[2020-08-31] MEDS: DOCUSATE 100 MG CAP PO SCH (08:49)
[2020-08-31] MEDS: MULTIVITAMINS, THERA 1 EACH TAB PO SCH (08:49)
[2020-08-31] MEDS: GABAPENTIN 300 MG CAP PO SCH (08:49)
[2020-08-31] MEDS: CHOLECALCIFEROL 1,000 UNIT TAB PO SCH (08:49)
[2020-08-31] MEDS: DAPSONE 25 MG TAB PO SCH (08:50)
[2020-08-31] MEDS: NYSTATIN 100,000 UNIT/ML SUSP 500,000 UNIT/5 ML CUP PO SCH ×2 (08:51→12:13)
[2020-08-31 09:14] VITALS: BP 144/95; TEMP 97.4
[2020-08-31 10:23] LABS: African American GFR (CKD) 47 (>60 ml/min/1.73 sqM); Anion Gap 9 mmol/L; Blood Urea Nitrogen 32 mg/dL (9-20); Calcium 9.4 mg/dL (8.4-10.2); Carbon Dioxide 29 mmol/L (22-30); Chloride 95 mmol/L (98-107); Glucose 180 mg/dL (74-99); Magnesium 1.7 mg/dL (1.6-2.3); Non-African American GFR(CKD) 41 (>60 ml/min/1.73 sqM); Potassium 4.4 mmol/L (3.5-5.1); Sodium 133 mmol/L (137-145)
--- NOTE | 2020-08-31 10:37 | P.PN ---
Subjective Patient is seen in follow-up for acute kidney injury on chronic kidney disease and hyperkalemia. Patient has chronic kidney disease stage IIIB with baseline creatinine near 2. Renal function and potassium level both improved. He admits to good urine output. He did have an episode of vomiting overnight. No chest pain or shortness of breath. No edema. Vital signs are stable. General: The patient appeared well nourished and normally developed. HEENT: Head exam is unremarkable. Neck is without jugular venous distension. LUNGS: Breath sounds decreased. HEART: Rate and Rhythm are regular. ABDOMEN: Soft, nontender. EXTREMITITES: No edema. Objective - Vital Signs Vital signs: Vital Signs Temp 97.4 F L 08/31/20 07:00 Pulse 94 08/31/20 07:40 Resp 17 08/31/20 07:40 BP 144/95 08/31/20 07:00 Pulse Ox 98 08/31/20 07:00 Intake & Output 08/30/20 08/31/20 08/31/20 18:59 06:59 18:59 Intake Total 540 250 Output Total 600 250 Balance 540 -350 -250 Intake: Oral 240 250 Other 300 Output: Urine 600 250 Other: Voiding Method Urinal Urinal # Voids 2 2 - Labs CBC & Chem 7: 08/29/20 13:47 08/31/20 09:44 Labs: Abnormal Lab Results - Last 24 Hours (Table) 08/30/20 08/30/20 08/31/20 Range/Units 11:47 18:45 09:44 Sodium 133 L (137-145) mmol/L Potassium 5.5 H 5.9 H (3.5-5.1) mmol/L Chloride 95 L (98-107) mmol/L BUN 32 H (9-20) mg/dL Creatinine 1.78 H (0.66-1.25) mg/dL Glucose 180 H (74-99) mg/dL Assessment and Plan Plan: Assessment: 1. Chronic kidney disease stage IIIB secondary to nephrosclerosis with baseline creatinine in the range of 2-2.3. UA fairly benign. No evidence of retention. Creatinine 1.78 today. 2. Hyperkalemia secondary to chronic kidney disease, Prograf and Bactrim. Improved with medical management. 3. Status post lung transplant on 08/11/2020 due to IPF. 4. Hypovolemic hyponatremia improved with IV hydration. Stable. Plan: Remains off IV fluids. Case discussed with [facility] transplant team. Will hold Bactrim. Alternative to Bactrim would be dapsone. However need to rule out G6PD deficiency before starting dapsone. Repeat potassium level at noon. If stable, he can be discharged and follow up with [facility]. G6PD level pending. Prograf level pending - target level 10-14 for 1st 6 months post-lung transplant per [facility]. Avoid nephrotoxins. Low potassium diet. Stable to be discharged home from nephrology standpoint. Patient is scheduled for repeat blood work to be done on Saturday which will be followed up by he was [facility]. Follow-up outpatient in the next 1-2 weeks. Case also discussed with infectious disease.
--- NOTE | 2020-08-31 12:51 | PN ---
PROGRESS NOTE DATE OF SERVICE: 08/31/2020 REASON FOR FOLLOWUP: Post lung transplant, PCP prophylaxis. INTERVAL HISTORY: The patient is currently afebrile. Patient is breathing comfortably. Left-sided upper chest pain. Denies having any cough with sputum production. No nausea, no vomiting. No abdominal pain or diarrhea. PHYSICAL EXAMINATION: Blood pressure is 144/95 with the pulse of 95, temperature 97.4. He is 98% on room air. General description is a middle-aged male up in the chair in no distress. RESPIRATORY SYSTEM: Unlabored breathing with decreased intensity of breath sounds. No wheeze. HEART: S1, S2. Regular rate and rhythm. ABDOMEN: Soft, no tenderness. LABS: BUN of 32, creatinine 1.78. Potassium 4.4. DIAGNOSTIC IMPRESSION AND PLAN: Patient with bilateral lung transplant. This patient has been on Bactrim for PCP prophylaxis admitted to the hospital with hyperkalemia and worsening kidney function related to Bactrim, which has been discontinued. Discussed in detail with his transplant team at [facility] recommending a G6PD level which has been sent. He did receive a dose of dapsone, however, per discussion with Nephrology, the transplant team would like G6PD level before they will continue dapsone so will not recommend any specific probiotics on discharge. All his questions and concerns were answered. MMODL / IJN: [id number] /
--- NOTE | 2020-08-31 13:32 | P.DS ---
Providers Date of admission: 08/29/20 14:45 Expected date of discharge: 08/31/20 Attending physician: Beltran Guaman Consults: 08/29/20 14:46 Consult Physician Routine Consulting Provider: Trent Camara Consult Reason/Comments: zofia Do you want consulting provider notified?: Yes 08/29/20 18:26 Consult Physician Routine Consulting Provider: Carolina Valderrama Consult Reason/Comments: Alternative to bactrim Do you want consulting provider notified?: Yes Primary care physician: Jose Gomes [facility] Course: 08/31/2020, patient seen eval examined during the rounds labs reviewed medications reviewed, patient rotation came down to normal level, thought to be related to Bactrim is on hold, option present to the patient switching rectum to dapsone He Is Reluctant to Be Started on that he would rather get it done from [facility] patient is now being discharged with follow-up at in [facility] transplant unit This is a 60-year-old male who underwent bilateral lung transplant 2 weeks ago. At [facility], she he has a history of IPF, postoperative course has been unremarkable, routine labs 2 weeks noted to have a hyper kalemia and acute renal injury patient has been admitted into the hospital with infectious disease as well as the renal on consult, patient in addition to home medicine has been on Prograf as well as Bactrim thought to be involved and acute kidney injury and hyperkalemia, on specific questioning he denies any chest pain shortness of breath denies any cough or sputum production, wounds thoracic have been healing well, denies any problem with passing urine hematuria, denies any flank pain Assessment: Acute kidney injury on chronic kidney injury Hyperkalemia Status post bilateral lung transplant due to IPF Hypovolemic hyponatremia Patient Condition at Discharge: Good Plan - Discharge Summary New Discharge Prescriptions: Continue Aspirin 81 mg PO DAILY Atorvastatin [Lipitor] 20 mg PO HS Gabapentin [Neurontin] 300 mg PO BID Multivit-Min/FA/Lycopen/Lutein [Centrum Silver Men Tablet] 1 tab PO DAILY Omeprazole 20 mg PO DAILY@0700 traZODone HCL 50 mg PO HS Docusate [Colace] 100 mg PO BID Acetaminophen Tab [Tylenol] 1,000 mg PO Q8H oxyCODONE HCL [OxyIR] 5 - 10 mg PO Q4-6H PRN PRN Reason: Pain Cholecalciferol (Vitamin D3) [Vitamin D3] 125 mcg PO DAILY@0900 Calcium Carbonate 500 mg PO AC-TID Nystatin 500,000 unit PO QID Magnesium Oxide [Mag-Ox] 800 mg PO AC-BID Cytogam Ivig 1 dose IVPB DIRECTED valGANciclovir [Valcyte] 900 mg PO DAILY predniSONE [Deltasone] 20 mg PO DAILY azaTHIOprine [Imuran] 200 mg PO HS Tacrolimus [Prograf] 3 mg PO Q12H Discontinued Sennosides [Senna] 8.6 - 17.2 mg PO HS Sulfamethox-Tmp 400-80Mg [Bactrim SS 400-80 mg] 1 tab PO MOWEFR@0900 Discharge Medication List Aspirin 81 mg PO DAILY 10/20/19 [History] Atorvastatin [Lipitor] 20 mg PO HS 10/20/19 [History] Gabapentin [Neurontin] 300 mg PO BID 10/20/19 [History] Multivit-Min/FA/Lycopen/Lutein [Centrum Silver Men Tablet] 1 tab PO DAILY 10/20/19 [History] Omeprazole 20 mg PO DAILY@0700 10/20/19 [History] Acetaminophen Tab [Tylenol] 1,000 mg PO Q8H 08/29/20 [History] Calcium Carbonate 500 mg PO AC-TID 08/29/20 [History] Cholecalciferol (Vitamin D3) [Vitamin D3] 125 mcg PO DAILY@0900 08/29/20 [History] Cytogam Ivig 1 dose IVPB DIRECTED 08/29/20 [History] Docusate [Colace] 100 mg PO BID 08/29/20 [History] Magnesium Oxide [Mag-Ox] 800 mg PO AC-BID 08/29/20 [History] Nystatin 500,000 unit PO QID 08/29/20 [History] Tacrolimus [Prograf] 3 mg PO Q12H 08/29/20 [History] azaTHIOprine [Imuran] 200 mg PO HS 08/29/20 [History] oxyCODONE HCL [OxyIR] 5 - 10 mg PO Q4-6H PRN 08/29/20 [History] predniSONE [Deltasone] 20 mg PO DAILY 08/29/20 [History] traZODone HCL 50 mg PO HS 08/29/20 [History] valGANciclovir [Valcyte] 900 mg PO DAILY 08/29/20 [History] Follow up Appointment(s)/Referral(s): Jose Bear DO [Primary Care Provider] - 1-2 days [facility] Visiting Nurse, [NON-STAFF] - 1 Week Discharge/Stand Alone Forms: [facility]
== END 2020-08-31 14:30 | disposition home or self-care (01) | DRG 683 ==
LOC: EC 12:24 → 5NMEDONC 14:45
PROVIDERS: ADMIT Internal Medicine Sleep Medicine; ATTEND Internal Medicine Sleep Medicine
PROC: 05HD33Z Insertion of Infusion Device into Right Cephalic Vein, Percutaneous Approach (ICD-10-PCS; principal; 2020-08-30 14:20)
DX: N17.9 Acute kidney failure, unspecified (principal); E87.1 Hypo-osmolality and hyponatremia; Z94.2 Lung transplant status; E78.5 Hyperlipidemia, unspecified; E86.1 Hypovolemia; E87.5 Hyperkalemia; I12.9 Hypertensive chronic kidney disease with stage 1 through stage 4 chronic kidney disease, or unspecified chronic kidney disease; N18.32 Chronic kidney disease, stage 3b; J84.112 Idiopathic pulmonary fibrosis; T36.8X5A Adverse effect of other systemic antibiotics, initial encounter; K21.9 Gastro-esophageal reflux disease without esophagitis; Z79.52 Long term (current) use of systemic steroids; Z79.82 Long term (current) use of aspirin; Z79.899 Other long term (current) drug therapy; Z87.891 Personal history of nicotine dependence; Z98.890 Other specified postprocedural states
CPT/HCPCS: 36410; 36415; 76937; 80048; 80053; 80197; 81003; 82955; 83735; 84100; 84132; 85025; 93005; 96361; 96374; 96375; 99285

== ENCOUNTER → 2021-03-30 | Outpatient (CLI) | payer BC ==
[2021-03-31 01:19] LABS: ALT 28 U/L (10-49); AST 31 U/L (14-35); Alkaline Phosphatase 58 U/L (41-126)
== END | disposition home or self-care (01) ==
LOC: LABWHC1 08:35
PROVIDERS: ATTEND Nurse Practitioner Family
DX: E87.5 Hyperkalemia (principal); R74.8 Abnormal levels of other serum enzymes
CPT/HCPCS: 36415; 84075; 84450; 84460

== ENCOUNTER → 2021-04-04 | Outpatient (CLI) | payer BC ==
[2021-04-04 14:53] LABS: HCT 25.9 % (39.6-50.0); HGB 8.1 g/dL (13.0-17.0); MCH 34.8 pg (27.0-32.0); MCHC 31.3 g/dL (32.0-37.0); MCV 111.2 fL (80.0-97.0); Mean Platelet Volume 10.2 fL (9.5-12.2); Platelet Count 162 X 10*3/uL (140-440); RBC 2.33 X 10*6/uL (4.40-5.60); WBC 6.46 X 10*3/uL (4.50-10.00)
[2021-04-04 16:39] LABS: Basophils # (A) 0.04 X 10*3/uL (0.00-0.10); Basophils % (A) 0.6 %; Eosinophils # (A) 0.02 X 10*3/uL (0.04-0.35); Eosinophils % (A) 0.3 %; Lymphocytes # (A) 1.72 X 10*3/uL (0.90-5.00); Lymphocytes % (A) 26.6 %; Monocytes # (A) 0.96 X 10*3/uL (0.20-1.00); Monocytes % (A) 14.9 %; Neutrophils # (A) 3.61 X 10*3/uL (1.80-7.70); Neutrophils % (A) 55.9 %
[2021-04-04 16:40] LABS: Hypochromasia (M) 2+; Macrocytosis (M) 3+
[2021-04-04 21:13] LABS: African American GFR (CKD) 29.7 (60.0-200.0); Albumin/Globulin Ratio 1.74 (1.60-3.17); Anion Gap 8.7 mmol/L (4.00-12.00); BUN/Creat Ratio 17.31 Ratio (12.00-20.00); Calcium 9.3 mg/dL (8.7-10.3); Carbon Dioxide 26.3 mmol/L (21.6-31.8); Globulin 2.3 g/dL (1.6-3.3); Non-African American GFR(CKD) 25.7 (60.0-200.0); Total Bilirubin 0.7 mg/dL (0.2-1.2); Total Protein 6.3 g/dL (6.2-8.2)
== END | disposition home or self-care (01) ==
LOC: LABWHC1 07:49
PROVIDERS: ATTEND Nurse Practitioner Family
DX: N17.9 Acute kidney failure, unspecified (principal); E87.5 Hyperkalemia; R74.8 Abnormal levels of other serum enzymes
CPT/HCPCS: 36415; 80053; 85025

== ENCOUNTER → 2021-05-29 | Outpatient (CLI) | payer BC ==
[2021-05-29 13:11] LABS: African American GFR (CKD) 34.5 (60.0-200.0); Albumin 4.4 g/dL (3.80-4.90); Albumin/Globulin Ratio 2.2 (1.60-3.17); Anion Gap 6.9 mmol/L (4.00-12.00); BUN/Creat Ratio 15.65 Ratio (12.00-20.00); Calcium 9.6 mg/dL (8.7-10.3); Carbon Dioxide 32.1 mmol/L (21.6-31.8); Non-African American GFR(CKD) 29.8 (60.0-200.0); Potassium 4.7 mmol/L (3.5-5.5); Total Bilirubin 0.5 mg/dL (0.3-1.2); Total Protein 6.4 g/dL (6.2-8.2)
== END | disposition home or self-care (01) ==
LOC: LABWHC1 07:38
PROVIDERS: ATTEND Internal Medicine
DX: E87.5 Hyperkalemia (principal); D84.9 Immunodeficiency, unspecified; R74.8 Abnormal levels of other serum enzymes; Z94.2 Lung transplant status
CPT/HCPCS: 36415; 80053

== ENCOUNTER → 2021-08-21 | Outpatient (CLI) | payer BC ==
[2021-08-21 11:15] LABS: HCT 25.7 % (39.6-50.0); HGB 8.1 g/dL (13.0-17.0); MCH 33.1 pg (27.0-32.0); MCHC 31.5 g/dL (32.0-37.0); MCV 104.9 fL (80.0-97.0); Mean Platelet Volume 9.1 fL (9.5-12.2); Platelet Count 182 X 10*3/uL (140-440); RBC 2.45 X 10*6/uL (4.40-5.60); RDW 12.9 % (11.5-14.5)
[2021-08-21 11:54] LABS: ALT 11 U/L (10-49); AST 22 U/L (14-35); African American GFR (CKD) 49.7 (60.0-200.0); Albumin 4.3 g/dL (3.8-4.9); Albumin/Globulin Ratio 1.99 (1.60-3.17); Alkaline Phosphatase 55 U/L (41-126); BUN/Creat Ratio 17.81 Ratio (12.00-20.00); Blood Urea Nitrogen 30.1 mg/dL (9.0-27.0); Calcium 9.5 mg/dL (8.7-10.3); Carbon Dioxide 25.1 mmol/L (20.0-27.5); Chloride 104 mmol/L (96-109); Chol/HDL Ratio 4.57 Ratio; Globulin 2.2 g/dL (1.6-3.3); Glucose 88 mg/dL (70-110); LDL Cholesterol,Calculated 157.7 mg/dL (0.0-131.0); Magnesium 1.8 mg/dL (1.5-2.4); Non-African American GFR(CKD) 42.9 (60.0-200.0); Phosphorus 3.1 mg/dL (2.4-5.1); Potassium 4.1 mmol/L (3.5-5.5); Sodium 139 mmol/L (135-145); Total Protein 6.5 g/dL (6.2-8.2)
[2021-08-21 12:47] LABS: Basophils # (A) 0.02 X 10*3/uL (0.00-0.10); Basophils % (A) 0.4 %; Eosinophils # (A) 0.03 X 10*3/uL (0.04-0.35); Eosinophils % (A) 0.7 %; Lymphocytes # (A) 1.55 X 10*3/uL (0.90-5.00); Lymphocytes % (A) 33.7 %; Monocytes # (A) 0.36 X 10*3/uL (0.20-1.00); Monocytes % (A) 7.8 %; Neutrophils # (A) 2.59 X 10*3/uL (1.80-7.70); Neutrophils % (A) 56.3 %
== END | disposition home or self-care (01) ==
LOC: LABWHC1 07:50
PROVIDERS: ATTEND Nurse Practitioner Family
DX: E78.2 Mixed hyperlipidemia (principal)
CPT/HCPCS: 36415; 80053; 80061; 83735; 84100; 85025

== ENCOUNTER → 2022-03-27 | Outpatient (CLI) | payer BC ==
--- NOTE | 2022-04-03 09:46 | US ---
EXAMINATION TYPE: US arterial LE multi level DATE OF EXAM: 03/27/2022 8:53 AM CLINICAL HISTORY: R25.2 LEG CRAMPING. Numbness in toes x 15 years cramping below knees. Doppler Waveforms: Right: Multiphasic Left: Multiphasic Pulse Volume Recording: Symmetric Pressure Gradients: No significant gradients Ankle-Brachial Indices: Right: 1.3 Left: 1.34 Toe Brachial Indices: Right: NC Left: 1.20 IMPRESSION: Normal ankle-brachial indices
== END | disposition home or self-care (01) ==
LOC: RADUSWWP 08:07
PROVIDERS: ATTEND Family Medicine
DX: R25.2 Cramp and spasm (principal)
CPT/HCPCS: 93922; 93923

== ENCOUNTER → 2022-04-13 | Outpatient (CLI) | payer BC ==
[2022-04-13 11:37] LABS: HCT 32.9 % (39.6-50.0); HGB 10.3 g/dL (13.0-17.0); MCH 30.1 pg (27.0-32.0); MCHC 31.3 g/dL (32.0-37.0); MCV 96.2 fL (80.0-97.0); Mean Platelet Volume 9.7 fL (9.5-12.2); NRBC Per 100 WBC 0 /100 WBCS (0.0-0.0); Platelet Count 228 X 10*3/uL (140-440); RBC 3.42 X 10*6/uL (4.40-5.60); RDW 13.3 % (11.5-14.5)
[2022-04-13 12:06] LABS: C Reactive Protein <0.30 mg/dL (0.00-0.80); Chol/HDL Ratio 4.99 Ratio; LDL Cholesterol,Calculated 187.1 mg/dL (0.0-131.0)
[2022-04-13 12:08] LABS: % Iron Saturation 16.55 (15.00-50.00); ALT 11 U/L (10-49); AST 23 U/L (14-35); African American GFR (CKD) 38.2 (60.0-200.0); Albumin 4.8 g/dL (3.8-4.9); Albumin/Globulin Ratio 1.92 (1.60-3.17); Alkaline Phosphatase 70 U/L (41-126); BUN/Creat Ratio 20.48 Ratio (12.00-20.00); Calcium 9.8 mg/dL (8.7-10.3); Carbon Dioxide 24.8 mmol/L (20.0-27.5); Chloride 102 mmol/L (96-109); Ferritin 90.4 ng/mL (22.0-322.0); Globulin 2.5 g/dL (1.6-3.3); Glucose 95 mg/dL (70-110); Iron 64 ug/dL (65-175); Magnesium 2.2 mg/dL (1.5-2.4); Phosphorus 3.6 mg/dL (2.4-5.1); Potassium 4.4 mmol/L (3.5-5.5); Sodium 140 mmol/L (135-145); Total Iron Binding Capacity 389 ug/dL (228-460); Total Protein 7.3 g/dL (6.2-8.2)
[2022-04-13 13:15] LABS: Basophils # (A) 0.02 X 10*3/uL (0.00-0.10); Basophils % (A) 0.6 %; Eosinophils # (A) 0.03 X 10*3/uL (0.04-0.35); Eosinophils % (A) 0.9 %; Immature Grans, Automated 1.2 %; Lymphocytes # (A) 1.08 X 10*3/uL (0.90-5.00); Lymphocytes % (A) 31.8 %; Monocytes # (A) 0.51 X 10*3/uL (0.20-1.00); Neutrophils # (A) 1.72 X 10*3/uL (1.80-7.70); Neutrophils % (A) 50.5 %; RBC Morphology NORMAL
[2022-04-13 15:22] LABS: Erythrocyte Sedimentation Rate 10 mm/Hr (0-20)
== END | disposition home or self-care (01) ==
LOC: LABWHC1 07:15
PROVIDERS: ATTEND Family Medicine
DX: G57.93 Unspecified mononeuropathy of bilateral lower limbs (principal); R74.8 Abnormal levels of other serum enzymes; R25.2 Cramp and spasm
CPT/HCPCS: 36415; 80053; 80061; 82728; 83036; 83540; 83550; 83735; 84100; 84153; 84439; 84443; 84481; 85025; 85652; 86038; 86140

== ENCOUNTER → 2024-06-15 | Outpatient (CLI) | payer BC ==
[2024-06-15 11:14] LABS: Basophils # (A) 0.03 X 10*3/uL (0.00-0.10); Basophils % (A) 0.7 %; Eosinophils # (A) 0.07 X 10*3/uL (0.04-0.35); Eosinophils % (A) 1.6 %; HCT 38.2 % (39.6-50.0); HGB 11.7 g/dL (13.0-17.0); Lymphocytes # (A) 1.24 X 10*3/uL (0.90-5.00); Lymphocytes % (A) 28.8 %; MCH 28.2 pg (27.0-32.0); MCHC 30.6 g/dL (32.0-37.0); Mean Platelet Volume 9.9 FL (9.5-12.2); Monocytes % (A) 11.6 %; NRBC Per 100 WBC 0 X 10*3/uL (0.00-0.01); Neutrophils # (A) 2.45 X 10*3/uL (1.80-7.70); Neutrophils % (A) 56.8 %; Platelet Count 218 X 10*3/uL (140-440); RBC 4.15 X 10*6/uL (4.40-5.60); RDW 13.3 % (11.5-14.5); WBC 4.31 X 10*3/uL (4.50-10.00)
[2024-06-15 12:10] LABS: ALT 10 U/L (10-49); AST 15 U/L (14-35); Albumin 4.6 g/dL (3.8-4.9); Alkaline Phosphatase 71 U/L (41-126); BUN/Creat Ratio 17.47 Ratio (12.00-20.00); Blood Urea Nitrogen 29.7 mg/dL (9.0-27.0); Calcium 9.2 mg/dL (8.7-10.3); Carbon Dioxide 26.1 mmol/L (21.6-31.8); Chloride 103 mmol/L (96-109); Globulin 2.3 g/dL (1.6-3.3); Glucose 94 mg/dL (70-110); Magnesium 1.5 mg/dL (1.5-2.4); Potassium 4.1 mmol/L (3.5-5.5); Sodium 142 mmol/L (135-145); Total Bilirubin 0.4 mg/dL (0.3-1.2); Total Protein 6.9 g/dL (6.2-8.2)
== END | disposition home or self-care (01) ==
LOC: LABWHC1 07:25
PROVIDERS: ATTEND Internal Medicine
DX: Z51.81 Encounter for therapeutic drug level monitoring (principal); Z94.2 Lung transplant status; Z79.899 Other long term (current) drug therapy
CPT/HCPCS: 36415; 80053; 83735; 85025

== ENCOUNTER → 2024-11-03 | Outpatient (CLI) | payer BC ==
[2024-11-03 12:49] LABS: BUN/Creat Ratio 13.56 Ratio (12.00-20.00); Blood Urea Nitrogen 24.4 mg/dL (9.0-27.0); Calcium 8.9 mg/dL (8.7-10.3); Carbon Dioxide 24.8 mmol/L (21.6-31.8); Chloride 105 mmol/L (96-109); Glucose 121 mg/dL (70-110); Potassium 3.6 mmol/L (3.5-5.5); Sodium 141 mmol/L (135-145)
[2024-11-03 14:10] LABS: HCT 34.7 % (39.6-50.0); HGB 10.8 g/dL (13.0-17.0); MCHC 31.1 g/dL (32.0-37.0); NRBC Per 100 WBC 0 X 10*3/uL (0.00-0.01); Platelet Count 193 X 10*3/uL (140-440); RBC 3.73 X 10*6/uL (4.40-5.60); WBC 4.24 X 10*3/uL (4.50-10.00)
== END | disposition home or self-care (01) ==
LOC: LABWHC1 07:18
PROVIDERS: ATTEND Internal Medicine
DX: Z51.81 Encounter for therapeutic drug level monitoring (principal); Z94.2 Lung transplant status
CPT/HCPCS: 36415; 80048; 85027